=== PATIENT | female | born 1985 | race Caucasian/White ===

== ENCOUNTER 2021-04-13 10:00 | Emergency (ER) | payer OTHER, SELFPAY ==
--- NOTE | ~2021-04-13 | XR_ITS ---
EXAMINATION: XR chest 2V EXAM DATE: 04/13/2021 10:23 INDICATION: Right-sided chest tightness, cough and shortness of breath. Symptoms 2 days. TECHNIQUE: Frontal and lateral projections of the chest obtained and reviewed. Comparison is made to prior examination from 06/14/2017. FINDINGS: The lungs are clear. There are no pleural effusions. The cardiomediastinal silhouette is within normal limits. There is no pneumothorax suspected. The bones and soft tissues are unremarkab le. There are cholecystectomy clips. IMPRESSION: No acute cardiopulmonary findings. Reviewed, dictated and finalized at location A.
[2021-04-13 10:04] VITALS: BP 140/79; PULSE 102; RESP 20; TEMP 37.1; O2SAT 100
--- NOTE | 2021-04-13 10:11 | ECG_ITS ---
Measurements Intervals [place] Rate: 101 P: 20 SC: 151 QRS: 36 QRSD: 90 T: 28 QT: 315 QTc: 410 Interpretive Statements SINUS TACHYCARDIA BASELINE WANDER- II, III BORDERLINE ECG Electronically Signed On 04-13-2021 10:36:22 CDT by Truong Ortega D.O.
--- NOTE | 2021-04-13 10:14 | ED.GENADULT ---
HPI - General Adult General Chief complaint: Chest Pain Stated complaint: Chest Pain, SOB Time Seen by Provider: 04/13/21 10:07 Source: patient Mode of arrival: ambulatory Limitations: no limitations History of Present Illness HPI narrative: Patient is here for evaluation of chest tightness, body aches and cough that started several days ago. She states her thermometer is broken at home so she is not been able to take her temperature but she has felt feverish. She denies any wheezing, her cough is nonproductive. There is no one else in her family that is ill, she is not Covid or flu vaccinated. She denies being exposed to any situation where she would likely have contracted Covid. Onset (ago): day(s) Location: chest (right upper) Radiation: non-radiation Severity: mild Quality: aching Relieving factors: none Exacerbating factors: other (deep breath or cough) Associated symptoms: cough, fever/chills and malaise Treatments prior to arrival: NSAID Related Data Allergies Allergy/AdvReac Type Severity Reaction Status Date / Time acetaminophen Allergy Mild Nausea and Verified 04/13/21 10:14 Vomiting hydrocodone Allergy Mild Nausea and Verified 04/13/21 10:14 Vomiting Penicillins Allergy Mild Rash Verified 04/13/21 10:14 tramadol Allergy Mild Nausea and Verified 04/13/21 10:14 Vomiting latex Allergy Unknown RASH Verified 04/13/21 10:14 Review of Systems Review of Systems: All systems reviewed & are unremarkable except as noted in HPI and below [facility] Surgical History Surgical History (Updated 04/13/21 @ 11:05 by Lubna Gar PA-C) History of laparoscopic cholecystectomy Family History Family History Mother Hypertension Other Diabetes mellitus Family history of coronary artery disease Social History Social History (Updated 04/13/21 @ 11:05 by Lubna Gar PA-C) Smoking status: Current every day smoker Alcohol intake: current Substance use: never Living arrangements: with family Occupation/Education: unemployed Exam Const: General: healthy appearing, no acute distress and alert Orientation/consciousness: patient oriented x3 HENMT: Head: normal to inspection Eyes: Conjunctivae: conjunctivae normal Pupils: Equal, round and reactive pupils present Chest: Chest palpation & inspection: normal inspection of the chest Other: unable to reproduce pain. Resp: Effort & Inspection: normal respiratory effort Auscultation: clear to auscultation bilaterally Cardio: Rate: tachycardic Rhythm: regular rhythm GI: GI Palp: Yes Soft to palpation Back/Spine/Pelvis: Back: no CVA tenderness Skin: General skin exam: normal color Rashes: no rashes Neuro: General: patient oriented x3 and moves all extremities Extrem: General: normal to inspection Psych: Mental Status: mental status grossly normal Course Course Emergency Course: Unable to reproduce any chest pain, patient did not cough when I asked her to breathe deep. Hr rate is down. She states that her chest feels about the same after her breathing treatment but that her dyspnea is worse when she is walking around. We will treat for exertional dyspnea, she is flu negative, Covid pending. Vital Signs Vital signs: Vital Signs Temperature 37.1 C 04/13/21 10:04 Pulse Rate 102 H 04/13/21 10:04 Respiratory Rate 20 04/13/21 10:04 Blood Pressure 140/79 04/13/21 10:04 Pulse Oximetry 100 04/13/21 10:04 Temperature 37.1 C 04/13/21 10:04 Pulse Rate 102 H 04/13/21 10:04 Respiratory Rate 20 04/13/21 10:04 Blood Pressure 140/79 04/13/21 10:04 Pulse Oximetry 100 04/13/21 10:04 Medical Decision Making Vital Signs Vital Signs: Vital Signs Temperature 37.1 C 04/13/21 10:04 Pulse Rate 102 H 04/13/21 10:04 Respiratory Rate 20 04/13/21 10:04 Blood Pressure 140/79 04/13/21 10:04 Pulse Oximetry 100 04/13/21 10:04 Temperature
[2021-04-13 10:25] LABS: Basophils Absolute Auto 0.1 K/mm3 (0.0-0.1); Basophils Percent Auto 0.5 % (0.2-1.2); Eosinophils Absolute Auto 0.2 K/mm3 (0-0.3); Eosinophils Percent Auto 1.5 % (0-4.4); Hematocrit 41.8 % (37.0-47.0); Hemoglobin 14.3 g/dL (12.0-15.0); Immature Granulocyte Absolute 0.04 K/mm3 (0.00-0.031); Immature Granulocyte Percent A 0.3 % (0-0.5); Lymphocytes Absolute Auto 3.55 K/mm3 (0.9-3.2); Lymphocytes Percent Auto 27.4 % (18.3-44.2); Mean Corpuscular HGB Conc 34.2 g/dl (32-36); Mean Corpuscular Hemoglobin 31.2 pg (26-34); Mean Corpuscular Volume 91.3 fl (80-100); Mean Platelet Volume 8.8 fl (7.4-10.4); Monocytes Absolute Auto 0.7 K/mm3 (0.1-0.6); Monocytes Percent Auto 5.6 % (2.6-8.5); Neutrophils Absolute Auto 8.4 K/mm3 (1.3-6.7); Neutrophils Percent Auto 64.7 % (45.5-73.1); Platelet Count Result 371 k/mm3 (150-375); Red Blood Count 4.58 M/mm3 (4.2-5.4); Red Cell Distribution Width 12.8 % (11.5-14.5)
--- NOTE | 2021-04-13 10:37 | PC.NURSE ---
Aspirin not given per Lubna RADER.
[2021-04-13 10:58] LABS: INR 0.9; Prothrombin Time 12.3 Seconds (11.1-14.7)
[2021-04-13 10:59] LABS: Partial Thromboplastin Time 28.9 SECONDS (22.3-36.8)
[2021-04-13 11:01] LABS: Anion Gap 8 mmol/L (8-16); Blood Urea Nitrogen 11 mg/dL (7-17); Calcium 10.1 mg/dL (8.4-10.2); Carbon Dioxide 24 mmol/L (22-30); Chloride 106 mmol/L (98-107); Estimated CRCL calculation 121 ml/min; Estimated Glomerular Filt Rate > 60; Glucose 139 mg/dL (65-110); Sodium 138 mmol/L (137-145)
[2021-04-13 11:13] LABS: Troponin I < 0.012 ng/mL (0.000-0.034)
[2021-04-13] MEDS: ALBUTEROL SULFATE NEB 2.5 MG/3 ML INH INHALATION (11:27)
[2021-04-13 12:09] VITALS: BP 116/90; PULSE 82; RESP 22; O2SAT 100
[2021-04-14 18:29] LABS: SARS-CoV-2 RNA PCR Negative
== END 2021-04-13 12:10 | disposition home or self-care (01) ==
PROVIDERS: Physician Assistant; Emergency Provider Emergency Medicine
DX: J06.9 Acute upper respiratory infection, unspecified (principal); R07.89 Other chest pain; Z20.822 Contact with and (suspected) exposure to COVID-19; F17.200 Nicotine dependence, unspecified, uncomplicated
CPT/HCPCS: 36415; 71046; 80048; 84484; 85025; 85610; 85730; 87804; 93005; 94640; 99284; C9803; U0003; U0005

== ENCOUNTER 2022-02-10 16:54 | Emergency (ER) | payer OTHER, SELFPAY ==
--- NOTE | ~2022-02-10 | XR_ITS ---
EXAMINATION: XR foot LT min 3V DATE: 02/10/2022 17:11 INDICATION: Lateral left foot pain post injury TECHNIQUE: Dorsoplantar, two oblique and lateral views of the left foot were obtained. COMPARISON: None. FINDINGS: Alignment is normal. No fracture. Joint spaces are normal. Soft tissues are unremarkable. IMPRESSION: 1. Negative left foot radiographs. Reviewed, dictated and finalized at location A.
--- NOTE | 2022-02-10 16:55 | ED.LOWEXIN ---
HPI - Extremity Injury (Lower) General Chief Complaint: Extremity Injury, Lower Stated Complaint: leeft foot pain Time Seen by Provider: 02/10/22 16:55 Source: patient Mode of arrival: ambulatory Limitations: no limitations History of Present Illness HPI Narrative: Ms. Womack is a 36-year-old female patient presenting to the clinic today with complaints of left foot injury/pain. She reports she dropped a small cast iron skillet on her left lateral foot on Tuesday. She reports that it is very painful to move her fifth toe and also walk on the lateral foot. States she has been having to walk on the insides of her feet. Related Data Home Medications Medication Instructions Recorded Confirmed condoms - female (FC2 Female 02/10/22 02/10/22 Condom) Allergies Allergy/AdvReac Type Severity Reaction Status Date / Time acetaminophen Allergy Mild Nausea and Verified 02/10/22 16:56 Vomiting hydrocodone Allergy Mild Nausea and Verified 02/10/22 16:56 Vomiting Penicillins Allergy Mild Rash Verified 02/10/22 16:56 tramadol Allergy Mild Nausea and Verified 02/10/22 16:56 Vomiting latex Allergy Unknown RASH Verified 02/10/22 16:56 Review of Systems Review of Systems: Pertinent positives per HPI. Patient denies any fever, chills, rash, headache, visual changes, dizziness, cough, runny nose, sore throat, shortness of breath, chest pain, palpitations, nausea, vomiting, diarrhea, constipation, abdominal pain, or any urinary issues. [facility] Surgical History Surgical History History of laparoscopic cholecystectomy Family History Family History Mother Hypertension Other Diabetes mellitus Family history of coronary artery disease Social History Social History Smoking status: Current every day smoker Alcohol intake: current Substance use: never Comments At the time of my signature, I reviewed and agree with the nursing past medical, surgical, social, and family history. There is no relevant family history pertinent to the patient complaint. Exam Narrative: General: Well-developed, obese, in no apparent distress Head: Normocephalic, atraumatic. Cardio: Regular rate and rhythm, s1 and s2 normal, no murmur appreciated. Resp: Clear to auscultation bilaterally, no rhonchi, rales, wheezing or rubs. Musculoskeletal: No deformity,tender to palpation over the 5th metatarsal,limited rom toe the left 5th toe with flexion and extension otherwise grossly normal range of motion, muscle strength strong and equal, peripheral pulse strong, no edema, no cyanosis, normal gait and station Course Course Emergency Course: Portions of this record may have been created with voice recognition software. Level of Care: Express Care Visit Vital Signs Vital signs: Vital signs reviewed MDM - Extremity Injury (Lower) MDM Narrative Medical decision making narrative: At the time of visit patient is resting comfortably on the exam table. X-ray was negative for any fracture or malalignment of the left foot. Differential Diagnosis Differential diagnosis: Likely fracture of toe and other (Foot sprain, foot soft tissue injury) Imaging Data Radiologist's impression: Close Foot X-Ray (Signed) sAhvin Huston - 02/10/22 [facility] [address] [address] XRay Report Signed Patient: Ave Womack : 1985 MR#: [id number] Age/Sex: 36 / F Acct:[id number] Loc: EXPC[facility]? ? ADM Date: 02/10/22Attending Dr: Ordering Physician: Subhash Mandujano APRN Date of Service: 02/10/22 Procedure(s): XR foot LT min 3V Accession Number(s): [id number] cc: Subhash Mandujano APRN; UNKNOWN,DOCTOR~ EXAMINATION: XR foot
[2022-02-10 17:02] VITALS: BP 141/79; PULSE 104; RESP 16; TEMP 37.3; O2SAT 100
== END 2022-02-10 17:36 | disposition home or self-care (01) ==
PROVIDERS: Emergency Provider Nurse Practitioner Family
DX: S90.32XA Contusion of left foot, initial encounter (principal); W20.8XXA Other cause of strike by thrown, projected or falling object, initial encounter; F17.200 Nicotine dependence, unspecified, uncomplicated
CPT/HCPCS: 73630; 99213; G0463

== ENCOUNTER 2023-01-05 19:33 | Emergency (ER) | payer OTHER, SELFPAY ==
[2023-01-05 19:40] VITALS: BP 140/77; PULSE 100; RESP 16; TEMP 37; O2SAT 100
--- NOTE | 2023-01-05 19:57 | ED.GENADULT ---
HPI - General Adult General Chief complaint: Unspecified Stated complaint: Bodyaches Time Seen by Provider: 01/05/23 19:57 Source: patient, RN notes reviewed and old records reviewed Mode of arrival: ambulatory Limitations: no limitations History of Present Illness HPI narrative: 37 year old female who presents to [facility] care with complaints of body aches and especially bilateral hand pain for the past 7 days.Patient reports that she has noted some swelling to her hands and her hands and fingers are painful especially with movement. Patient denies any sore throat any fevers chills or any recent respiratory illness. Patient denies any known insect or tick bites. Patient reports that she has not taken any OTC pain medications on a routine basis, has not used ice or heat for her discomfort. Patient reports family history of arthritis. MD complaint: body aches especially bilateral hand pain Onset (ago): week(s) (1) Severity: moderate Treatments prior to arrival: none Related Data Home Medications Medication Instructions Recorded Confirmed norethindrone acetate 1 mg-ethinyl 1 tablet PO DAILY 02/10/22 01/05/23 estradiol 20 mcg tablet Allergies Allergy/AdvReac Type Severity Reaction Status Date / Time acetaminophen Allergy Mild Nausea and Verified 01/05/23 19:42 Vomiting hydrocodone Allergy Mild Nausea and Verified 01/05/23 19:42 Vomiting Penicillins Allergy Mild Rash Verified 01/05/23 19:42 tramadol Allergy Mild Nausea and Verified 01/05/23 19:42 Vomiting latex Allergy Unknown RASH Verified 01/05/23 19:42 Review of Systems Review of Systems: CONSTITUTIONAL: Denies fever, chills, or sweats. EYES: Denies visual changes, redness, or discharge. ENT: Denies rhinorrhea, congestion, sore throat, or otalgia. CARDIOVASCULAR: Denies chest pain, palpitations, or edema. RESPIRATORY: Denies cough or dyspnea. GASTROINTESTINAL: Denies abdominal pain, nausea, vomiting, or diarrhea. GENITOURINARY: Denies dysuria or hematuria. SKIN: Denies rash or itching. MUSCULOSKELETAL: Denies back pain,reports generalized joint pain and bodyaches, reports mainly bilateral hand pain,myalgia. NEUROLOGIC: Denies headache, numbness, or weakness. PSYCHIATRIC: Denies anxiety or depression. All systems reviewed & are unremarkable except as noted in HPI and below PMFSH Past Medical History Medical History (Updated 01/06/23 @ 16:03 by Maddie Wen NP) Bronchitis Lumbar strain Surgical History Surgical History (Updated 01/06/23 @ 15:48 by Maddie Wen NP) H/O arthroscopy of right knee History of arthroscopy of left shoulder History of dilatation and curettage History of laparoscopic cholecystectomy History of placement of ear tubes History of tonsillectomy and adenoidectomy Family History Family History (Updated 01/06/23 @ 15:45 by Maddie Wen NP) Mother Hypertension Other Arthritis Diabetes mellitus Family history of coronary artery disease Social History Social History Smoking status: Current every day smoker Alcohol intake: current Substance use: never Living arrangements: with family Occupation/Education: unemployed Comments At time of signature, agree with nursing past medical, surgical, social and family history. There is no relevant family history pertinent to the presenting complaint Exam Narrative: GENERAL: Well-appearing, well-nourished, and in no acute distress. HEAD: Normocephalic, atraumatic. EYES: PERRLA and EOMI. ENT: Nares clear, no rhinorrhea or epistaxis. Mucous membranes moist.TM's normal with good light reflex, throat pink tonsils not present NECK: Supple.no lymphadenopathy CHEST: Clear to auscultation. No respiratory distress.SAO2 100% on room air HEART: Regular rate and rhythm. No murmur heard. Normal peripheral pulses. ABDOMEN: Soft, nontender, nondistended, normal active bowel sounds. EXTREMITIES
== END 2023-01-05 20:10 | disposition home or self-care (01) ==
PROVIDERS: Emergency Provider Registered Nurse
DX: M25.542 Pain in joints of left hand (principal); M25.541 Pain in joints of right hand; R52 Pain, unspecified; F17.200 Nicotine dependence, unspecified, uncomplicated
CPT/HCPCS: 99213; G0463

== ENCOUNTER 2023-01-21 10:18 | Outpatient (CLI) | payer OTHER, SELFPAY ==
[2023-01-21 11:12] LABS: Hematocrit 42.8 % (37.0-47.0); Hemoglobin 13.9 g/dL (12.0-15.0); Mean Corpuscular HGB Conc 32.5 g/dl (32-36); Mean Corpuscular Hemoglobin 29.5 pg (26-34); Mean Corpuscular Volume 90.9 fl (80-100); Mean Platelet Volume 9.1 fl (7.4-10.4); Platelet Count Result 342 k/mm3 (150-375); Red Blood Count 4.71 M/mm3 (4.2-5.4); Red Cell Distribution Width 13.2 % (11.5-14.5)
[2023-01-21 11:23] LABS: Alanine Aminotransferase 31 U/L (6-35); Albumin Level 4.1 g/dL (3.5-5.1); Alkaline Phosphatase 82 U/L (38-126); Anion Gap 6 mmol/L (8-16); Aspartate Amino Transferase 29 U/L (14-36); Bilirubin,Total 0.3 mg/dL (0.2-1.3); Blood Urea Nitrogen 12 mg/dL (7-17); Calcium 8.9 mg/dL (8.4-10.2); Carbon Dioxide 20 mmol/L (22-30); Chloride 109 mmol/L (98-107); Cholesterol 209 mg/dL (0-200); Estimated Glomerular Filt Rate > 60; Glucose 86 mg/dL (65-110); HDL Direct 56 mg/dL; Potassium 4.1 mmol/L (3.4-5.0); Sodium 135 mmol/L (137-145); Triglycerides 113 mg/dL (<150)
[2023-01-21 11:31] LABS: LDL Cholesterol Direct 128 mg/dL
[2023-01-21 11:41] LABS: Erythrocyte Sedimentation Rate 18 mm/hr (0-20)
[2023-01-21 12:48] LABS: Rheumatoid Factor < 12.0 IU/ML (<12)
[2023-01-27 07:29] LABS: ANA Pattern Nuclear, Nucleolar; ANA Titer >=1:1280 (Negative); Anti Nuclear Antibody Pattern Nuclear, Speckled
[2023-01-27 22:04] LABS: Anti Cyclic Citrullinated Pept <16 Units (<20)
== END 2023-01-21 10:19 | disposition home or self-care (01) ==
PROVIDERS: PCP Nurse Practitioner Family; Visit Provider Nurse Practitioner Family
DX: M25.50 Pain in unspecified joint (principal); Z13.0 Encounter for screening for diseases of the blood and blood-forming organs and certain disorders involving the immune mechanism; M25.40 Effusion, unspecified joint; Z13.228 Encounter for screening for other metabolic disorders; Z13.220 Encounter for screening for lipoid disorders
CPT/HCPCS: 36415; 80053; 80061; 85025; 85652; 86038; 86039; 86140; 86200; 86430

== ENCOUNTER 2023-04-08 18:25 | Emergency (ER) | payer OTHER, SELFPAY ==
[2023-04-08 18:27] VITALS: BP 138/85; PULSE 81; RESP 18; TEMP 36.9; O2SAT 99
--- NOTE | 2023-04-08 18:47 | ED.EAR ---
HPI - Ear Problem General Chief complaint: Ear Stated complaint: right ear pain Time Seen by Provider: 04/08/23 18:47 Source: patient Mode of arrival: ambulatory Limitations: no limitations History of Present Illness HPI Narrative: 37-year-old female presents with complaint of right ear pain starting yesterday. Denies URI symptoms. Reports history of tubes, multiple ear infections as a child. Afebrile. All systems reviewed and negative except as noted above. Related Data Home Medications Medication Instructions Recorded Confirmed glucosamine-chondroitin 250 mg-200 2 tablet PO DAILY 01/19/23 04/08/23 mg tablet (Osteo Bi-Flex) norethindrone 1 mg-ethinyl 1 tablet PO DAILY 04/08/23 04/08/23 estradiol 20 mcg (21)-iron 75 mg (7) tablet (07/02 (28)) omeprazole magnesium 20 mg 20 mg PO DAILY 04/08/23 04/08/23 tablet,delayed release (Prilosec OTC) Allergies Allergy/AdvReac Type Severity Reaction Status Date / Time Penicillins Allergy Mild Rash Verified 04/08/23 18:26 tramadol Allergy Mild Nausea and Verified 04/08/23 18:26 Vomiting latex Allergy Unknown RASH Verified 04/08/23 18:26 Review of Systems Review of Systems: CONSTITUTIONAL: Denies fever, chills, or sweats. EYES: Denies visual changes, redness, or discharge. ENT: Denies rhinorrhea, congestion, sore throat . Reports right ear pain. CARDIOVASCULAR: Denies chest pain, palpitations, or edema. RESPIRATORY: Denies cough or dyspnea. GASTROINTESTINAL: Denies abdominal pain, nausea, vomiting, or diarrhea. GENITOURINARY: Denies dysuria or hematuria. SKIN: Denies rash or itching. MUSCULOSKELETAL: Denies back pain, joint pain, or myalgia. NEUROLOGIC: Denies headache, numbness, or weakness. PSYCHIATRIC: Denies anxiety or depression. All other systems reviewed are negative, except as documented in HPI. [facility] Past Medical History Medical History (Updated 04/08/23 @ 18:53 by Sofia Maloney NP) Bronchitis Lumbar strain Surgical History Surgical History (Updated 01/06/23 @ 15:48 by Maddie Wen NP) H/O arthroscopy of right knee History of arthroscopy of left shoulder History of dilatation and curettage History of laparoscopic cholecystectomy History of placement of ear tubes History of tonsillectomy and adenoidectomy Family History Family History (Updated 01/21/23 @ 09:53 by Whitney Fisher MA) Mother Hypertension Grandparent Diabetes mellitus Family history of coronary artery disease Other Arthritis Social History Social History (Updated 01/21/23 @ 09:55 by Whitney Fisher MA) Smoking status: Current every day smoker Tobacco type: cigarettes Alcohol intake: current Alcohol use details: rarely Substance use: never Lack of Transportation: No Lack of Food: Never True Current Housing: I Have Housing Concerned About Future Housing: No Difficulty Paying Gas/Electric Bills: No Difficulty Paying for Meds: No Currently Unemployed: No Education: Associate Degree Difficulty w/ Childcare or Family Care: No Living arrangements: with family Occupation/Education: unemployed Comments At time of signature, agree with nursing past medical, surgical, social and family history. There is no relevant family history pertinent to the presenting complaint. Exam Narrative: GENERAL: This is a well-nourished, well-developed patient, in no apparent distress. HEAD: normocephalic, atraumatic. EYES: PERRL. Sclera clear/white. Vision is grossly intact. EARS: External ears normal, auditory canals clear and without drainage, Fluid to right TM, retracted with mild erythema. No perforation Bilaterally. left TM normal. Hearing grossly intact. NOSE: External nose normal NECK: Neck supple, non-tender without lymphadenopathy, masses or thyromegaly. CARDIOVASCULAR: Regular rate and rhythm without murmurs, gallops, or rubs. RESPIRATORY: Clear to auscultation. Breath sounds equal bilaterally.
== END 2023-04-08 18:55 | disposition home or self-care (01) ==
PROVIDERS: Emergency Provider Nurse Practitioner Family; PCP Nurse Practitioner Family
DX: H65.01 Acute serous otitis media, right ear (principal); F17.210 Nicotine dependence, cigarettes, uncomplicated
CPT/HCPCS: 99213; G0463

== ENCOUNTER 2023-07-12 10:56 | Outpatient (CLI) | payer OTHER, SELFPAY ==
--- NOTE | ~2023-07-12 | XR_ITS ---
XR hand BI arthritis min 3V DATE: 07/12/2023 11:38 INDICATION: Systemic involvement of connective tissue TECHNIQUE: 4 views of each hand COMPARISON: None FINDINGS: No fracture, dislocation, periosteal reaction or bone destruction, erosive change or chondr ocalcinosis of either hand is noted. Joint spaces appear relatively well preserved. IMPRESSION: No significant abnormality Reviewed, dictated and finalized at location L. ERY [employer] IMPRESSION: No significant abnormality
--- NOTE | ~2023-07-12 | XR_ITS ---
XR chest 2V DATE: 07/12/2023 11:38 INDICATION: Nicotine dependence TECHNIQUE: PA and lateral views COMPARISON: 04/13/2021 2 view chest FINDINGS: Normal heart size. No hilar or mediastinal enlargement. Calcified pulmonary granuloma, middle lobe. The lungs are clear of infiltrate or consolidation, pleur al effusion or pulmonary vascular congestion or pneumothorax. Surgical clips, right upper quadrant, consistent with cholecystectomy. Mild thoracic dextroscoliosis IMPRESSION: No active cardiopulmonary disease Status post cholecystectomy Reviewed, dictated and finalized at location L. [facility] [employer]
[2023-07-12 11:30] LABS: Hematocrit 43.6 % (37.0-47.0); Hemoglobin 14.5 g/dL (12.0-15.0); Mean Corpuscular HGB Conc 33.3 g/dl (32-36); Mean Corpuscular Volume 90.1 fl (80-100); Mean Platelet Volume 8.7 fl (7.4-10.4); Platelet Count Result 339 k/mm3 (150-375); Red Blood Count 4.84 M/mm3 (4.2-5.4); Red Cell Distribution Width 12.9 % (11.5-14.5); White Blood Count 10.9 K/mm3 (4.5-10.0)
[2023-07-12 11:41] LABS: Creatine Kinase 79 U/L (30-135); Uric Acid 3.3 mg/dL (2.5-7.5)
[2023-07-12 11:42] LABS: Total Protein Urine Random 28 mg/dL
[2023-07-12 11:50] LABS: Complement C3 108 mg/dL (88-165)
[2023-07-12 12:15] LABS: Vitamin D 25 Hydroxy 37.3 ng/mL
[2023-07-12 12:16] LABS: Creatinine Urine 289.7 mg/dL
[2023-07-12 12:22] LABS: HIV 1/2 Ab P24 Ag Result Negative (Negative)
[2023-07-12 12:29] LABS: Hepatitis B Surface Antigen Negative (Negative)
[2023-07-12 12:49] LABS: Hepatitis B Surface Anti Res Positive; Hepatitis C Virus Antibody Negative (Negative)
[2023-07-12 13:49] LABS: Erythrocyte Sedimentation Rate 8 mm/hr (0-20)
[2023-07-14 21:48] LABS: Aldolase 4.4 U/L (<=8.1)
[2023-07-15 04:18] LABS: Lupus dRVVT Screen 35 sec (<=45); PTT-LA Screen 34 sec (<=40)
[2023-07-15 21:03] LABS: SM Antibody <1.0; SM/RNP Antibody <1.0; SS-A <1.0; SS-B <1.0
== END 2023-07-12 10:57 | disposition home or self-care (01) ==
PROVIDERS: PCP Nurse Practitioner Family; Visit Provider Internal Medicine
DX: F17.200 Nicotine dependence, unspecified, uncomplicated (principal); M35.9 Systemic involvement of connective tissue, unspecified; M06.041 Rheumatoid arthritis without rheumatoid factor, right hand; M06.042 Rheumatoid arthritis without rheumatoid factor, left hand; M19.90 Unspecified osteoarthritis, unspecified site; Z90.49 Acquired absence of other specified parts of digestive tract
CPT/HCPCS: 36415; 71046; 73130; 82085; 82306; 82550; 82570; 84156; 84550; 85027; 85613; 85652; 85730; 86160; 86225; 86235; 86703; 86706; 86803; 87340; G0432

== ENCOUNTER 2024-04-17 14:35 | Emergency (ER) | payer SELFPAY ==
[2024-04-17 14:41] VITALS: BP 119/73; PULSE 92; RESP 16; TEMP 36.9; O2SAT 100
--- NOTE | 2024-04-17 14:47 | ED_ITS ---
HPI - Skin/Abscess/Foreign Bdy General Chief complaint: Skin/Abscess/Foreign Body Stated complaint: Right Underarm Bump Time Seen by Provider: 04/17/24 14:59 Source: patient, RN notes reviewed and old records reviewed Mode of arrival: ambulatory Limitations: no limitations History of Present Illness HPI narrative: Patient presents with complaints of painful red lump under the right axilla. She reports that this has been a problem fairly often in the past, same spot. She typically cleanse this area with Hibiclens and it resolves on its own. She reports this particular time the area has gotten worse. She reports she noticed it 3-4 days ago. It has increased in size. She has noted some purulent drainage. She denies any fever, chills, sweats. Denies any injury or trauma. No other concerns or complaints today. Has been taking Tylenol and ibuprofen with minimal relief Related Data Home Medications Medication Instructions Recorded Confirmed norethindrone 1 mg-ethinyl 1 tablet PO DAILY 04/08/23 04/17/24 estradiol 20 mcg (21)-iron 75 mg (7) tablet (07/02 (28)) Allergies Allergy/AdvReac Type Severity Reaction Status Date / Time Penicillins Allergy Mild Rash Verified 11/01/23 09:28 tramadol Allergy Mild Nausea and Verified 11/01/23 09:28 Vomiting latex Allergy Unknown RASH Verified 11/01/23 09:28 Review of Systems Review of Systems: All systems reviewed & are unremarkable except as noted in HPI and below Constitutional: Constitutional: Reports no additional constitutional complaints ENT: Reports system reviewed and no additional complaints, except as documented Cardiovascular: Cardiovascular: Reports no additional cardiovascular complaints Respiratory: Respiratory: Reports no additional respiratory complaints Gastrointestinal: Gastrointestinal: Reports no additional gastrointestinal complaints Integumentary/Breasts: Skin/Breast: Reports system reviewed and no additional complaints, except as docu and Reports as per HPI [facility] Past Medical History Medical History (Updated 04/17/24 @ 15:07 by Yessenia Strickland APRN) Bronchitis Counseling on health promotion and disease prevention Current smoker Encounter for medication management Encounter for screening for other viral diseases Lumbar strain Undifferentiated connective tissue disease Surgical History Surgical History H/O arthroscopy of right knee History of arthroscopy of left shoulder History of dilatation and curettage History of laparoscopic cholecystectomy History of placement of ear tubes History of tonsillectomy and adenoidectomy Family History Family History Mother Hypertension Grandparent Diabetes mellitus Family history of coronary artery disease Other Arthritis Social History Social History Smoking status: Current every day smoker Tobacco type: cigarettes Alcohol intake: current Alcohol use details: rarely Substance use: never Lack of Transportation: No Lack of Food: Never True Current Housing: I Have Housing Concerned About Future Housing: No Difficulty Paying Gas/Electric Bills: No Difficulty Paying for Meds: No Currently Unemployed: No Education: Associate Degree Difficulty w/ Childcare or Family Care: No Living arrangements: with family Occupation/Education: unemployed Comments At the time of my signature, I reviewed and agree with the nursing past medical, surgical, social, and family history. There is no relevant family history pertinent to the patient complaint. Exam Const: General: cooperative, no acute distress, alert and awake Orie ntation/consciousness: oriented to person, oriented to place and oriented to time HENMT: Head: normal to inspection Resp: Effort & Inspection: normal respiratory effort and able to speak in complete sentences Auscultation: clear to auscultation bilaterally, no crackles, no rales, no rhonchi and no wheezes Cardio: Palpation: normal PMI Rate: regular rate Rhythm: regular rhythm Heart sounds: S1 normal heart sound present and S2 normal heart sound present Skin: Other: Abscess to right axilla, fluctuant with no active drainage at this time, features are consistent with hydradenitis. There is some surrounding redness without any induration Neuro: General: oriented to person, oriented to place and oriented to time Cranial nerves: Yes CN's II-XII intact bilaterally Psych: Appearance: grossly normal Thought process: Normal thought process present Insight: Good insight present (Psych) Judgement: Good judgement present (Psych) Course Course Level of Care: Express Care Visit Vital Signs Vital signs: Reviewed MDM - Skin/Abscess/Foreign Bdy MDM Narrative Medical decision making narrative: Patient with symptoms consistent with hydradenitis to right axilla. I&D not appropriate for this case. Start on p.o. antibiotic therapy. Patient strongly advised to follow with primary care provider. Emergency department for new or worse symptoms. Discharge instructions reviewed with patient, as well as provided in writing per nursing staff. The instructions also include specific and strict return/GO TO THE ER as well as f/u information. All questions have been answered, and the patient deny any further questions with discharge and discharge plan. Some parts of this dictation were generated by voice recognition software and may contain typographical and/or grammatical inaccuracies. Differential Diagnosis Differential diagnosis: Likely abscess of skin or subcutaneous tissue and cellulitis Medical Records Attestation: I reviewed the patient's medical records. Discharge Plan Discharge Clinical Impression: Axillary hidradenitis suppurativa Patient Disposition: Home, Self-Care Condition: Stable Instructions: Antibiotic Form, Abscess (ED) Additional Instructions: Take medications as prescribed. Follow-up with primary care provider. Emergency department for new or worse symptoms Patient Language: Telugu Prescriptions: New clindamycin HCl 300 mg capsule 300 mg PO TID 7 Days Qty: 21 0RF No Action norethindrone-e.estradiol-iron [Junel FE 07/02 (28)] 1 mg-20 mcg (21)/75 mg (7) tablet 1 tablet PO DAILY hydroxychloroquine [Plaquenil] 200 mg tablet 400 mg PO DAILY Qty: 60 4RF Follow-up/Referrals: Sarika Oneal APRN [Primary Care Provider] - 2 Weeks Time of Disposition: 15:08
== END 2024-04-17 15:20 | disposition home or self-care (01) ==
PROVIDERS: Emergency Provider Nurse Practitioner Family; PCP Nurse Practitioner Family
DX: L73.2 Hidradenitis suppurativa (principal); F17.210 Nicotine dependence, cigarettes, uncomplicated
CPT/HCPCS: 99213; G0463

== ENCOUNTER 2024-06-11 10:01 | Outpatient (CLI) | payer OTHER, SELFPAY ==
[2024-06-11 10:32] LABS: Basophils Percent Auto 0.5 % (0.2-1.2); Eosinophils Absolute Auto 0.2 K/mm3 (0-0.3); Eosinophils Percent Auto 2.5 % (0-4.4); Hematocrit 45.2 % (37.0-47.0); Hemoglobin 15.2 g/dL (12.0-15.0); Immature Granulocyte Absolute 0.02 K/mm3 (0.00-0.031); Immature Granulocyte Percent A 0.3 % (0-0.5); Lymphocytes Absolute Auto 2.63 K/mm3 (0.9-3.2); Lymphocytes Percent Auto 40.3 % (18.3-44.2); Mean Corpuscular HGB Conc 33.6 g/dl (32-36); Mean Corpuscular Hemoglobin 30.2 pg (26-34); Mean Corpuscular Volume 89.7 fl (80-100); Monocytes Absolute Auto 0.4 K/mm3 (0.1-0.6); Monocytes Percent Auto 5.7 % (2.6-8.5); Neutrophils Absolute Auto 3.3 K/mm3 (1.3-6.7); Neutrophils Percent Auto 50.7 % (45.5-73.1); Platelet Count Result 270 k/mm3 (150-375); Red Blood Count 5.04 M/mm3 (4.2-5.4); Red Cell Distribution Width 13.1 % (11.5-14.5); White Blood Count 6.5 K/mm3 (4.5-10.0)
[2024-06-11 10:39] LABS: Add Urine Microscopic? YES; Appearance Urine Clear (Clear); Bacteria Urine Rare /hpf; Bilirubin Urine Negative (Negative); Blood Urine 1+ (Negative); Color Urine Yellow (Yellow); Glucose Urine UA Negative (Negative); Ketones Urine Trace mg/dL (Negative); Leukocyte Esterase Ur 1+ LEU/UL (Negative); Nitrate Urine Negative (Negative); Non Pathogenic Casts 0-2; Protein Urine 1+ mg/dL (Negative); Specific Grav Ur 1.021 (1.001-1.035); Squamous Epithelial Cell Urine Few /hpf (Few)
[2024-06-11 10:51] LABS: Alanine Aminotransferase 22 U/L (6-35); Albumin Level 4.2 g/dL (3.5-5.1); Alkaline Phosphatase 77 U/L (38-126); Anion Gap 2 mmol/L (4-12); Aspartate Amino Transferase 24 U/L (14-36); Bilirubin,Total 0.4 mg/dL (0.2-1.3); Blood Urea Nitrogen 9 mg/dL (7-17); CRP < 0.5 mg/dL (<1.0); Carbon Dioxide 24 mmol/L (22-30); Chloride 110 mmol/L (98-107); Estimated Glomerular Filt Rate > 60; Glucose 86 mg/dL (65-110); Potassium 4.3 mmol/L (3.4-5.0); Sodium 136 mmol/L (137-145)
[2024-06-11 11:15] LABS: Erythrocyte Sedimentation Rate 10 mm/hr (0-20)
== END 2024-06-11 10:02 | disposition home or self-care (01) ==
LOC: ANHLAB 10:05
PROVIDERS: PCP Nurse Practitioner Family; Visit Provider Internal Medicine
DX: M32.9 Systemic lupus erythematosus, unspecified (principal)
CPT/HCPCS: 36415; 80053; 81001; 84100; 85025; 85652; 86140

== ENCOUNTER 2024-06-20 08:57 | Outpatient (CLI) | payer OTHER, SELFPAY | END 2024-06-20 08:58 | disposition home or self-care (01) | LOC: ANHLAB 08:58 | PROVIDERS: PCP Nurse Practitioner Family; Visit Provider Obstetrics & Gynecology | DX: R10.2 Pelvic and perineal pain (principal) | CPT/HCPCS: 36415; 86850; 86900; 86901 ==

== ENCOUNTER 2024-08-15 10:32 | Outpatient (CLI) | payer OTHER, SELFPAY ==
[2024-08-15 11:40] LABS: Basophils Absolute Auto 0.1 K/mm3 (0.0-0.1); Basophils Percent Auto 0.5 % (0.2-1.2); Eosinophils Absolute Auto 0.5 K/mm3 (0-0.3); Eosinophils Percent Auto 3.3 % (0-4.4); Hemoglobin 13.7 g/dL (12.0-15.0); Immature Granulocyte Absolute 0.06 K/mm3 (0.00-0.031); Immature Granulocyte Percent A 0.4 % (0-0.5); Lymphocytes Absolute Auto 2.85 K/mm3 (0.9-3.2); Lymphocytes Percent Auto 19.3 % (18.3-44.2); Mean Corpuscular HGB Conc 33.4 g/dl (32-36); Mean Corpuscular Hemoglobin 30.9 pg (26-34); Mean Corpuscular Volume 92.6 fl (80-100); Monocytes Absolute Auto 0.7 K/mm3 (0.1-0.6); Neutrophils Absolute Auto 10.5 K/mm3 (1.3-6.7); Neutrophils Percent Auto 71.5 % (45.5-73.1); Platelet Count Result 323 k/mm3 (150-375); Red Blood Count 4.43 M/mm3 (4.2-5.4); Red Cell Distribution Width 13.6 % (11.5-14.5); White Blood Count 14.8 K/mm3 (4.5-10.0)
[2024-08-15 11:44] LABS: Add Urine Microscopic? YES; Appearance Urine Clear (Clear); Bacteria Urine None Seen /hpf; Bilirubin Urine Negative (Negative); Blood Urine 2+ (Negative); Color Urine Yellow (Yellow); Glucose Urine UA Negative (Negative); Ketones Urine Negative (Negative); Leukocyte Esterase Ur Negative LEU/UL (Negative); Nitrate Urine Negative (Negative); Non Pathogenic Casts 0-2; Protein Urine Trace mg/dL (Negative); Specific Grav Ur 1.018 (1.001-1.035); Squamous Epithelial Cell Urine Occasional /hpf (Few); Urobilinogen Urine 0.2 mg/dL (<2.0); WBC Urine 0-5 /hpf (0-3)
[2024-08-15 12:06] LABS: Erythrocyte Sedimentation Rate 13 mm/hr (0-20)
[2024-08-15 12:20] LABS: Alanine Aminotransferase 30 U/L (6-35); Alkaline Phosphatase 82 U/L (38-126); Anion Gap 8 mmol/L (4-12); Aspartate Amino Transferase 24 U/L (14-36); Bilirubin,Total 0.2 mg/dL (0.2-1.3); Blood Urea Nitrogen 12 mg/dL (7-17); CRP < 0.5 mg/dL (<1.0); Calcium 8.7 mg/dL (8.4-10.2); Carbon Dioxide 22 mmol/L (22-30); Chloride 106 mmol/L (98-107); Estimated Glomerular Filt Rate > 60; Glucose 98 mg/dL (65-110); Phosphorus 2.9 mg/dL (2.5-4.5); Potassium 3.7 mmol/L (3.4-5.0); Sodium 136 mmol/L (137-145)
== END 2024-08-15 10:33 | disposition home or self-care (01) ==
LOC: ANHLAB 10:36
PROVIDERS: PCP Nurse Practitioner Family; Visit Provider Internal Medicine
DX: M06.00 Rheumatoid arthritis without rheumatoid factor, unspecified site (principal)
CPT/HCPCS: 36415; 80053; 81001; 84100; 85025; 85652; 86140

== ENCOUNTER 2024-10-23 08:41 | Outpatient (CLI) | payer OTHER, SELFPAY ==
[2024-10-23 09:22] LABS: Basophils Absolute Auto 0.1 K/mm3 (0.0-0.1); Basophils Percent Auto 0.6 % (0.2-1.2); Eosinophils Absolute Auto 0.2 K/mm3 (0-0.3); Eosinophils Percent Auto 2.2 % (0-4.4); Hemoglobin 14.7 g/dL (12.0-15.0); Immature Granulocyte Absolute 0.04 K/mm3 (0.00-0.031); Immature Granulocyte Percent A 0.4 % (0-0.5); Lymphocytes Absolute Auto 2.49 K/mm3 (0.9-3.2); Lymphocytes Percent Auto 24.3 % (18.3-44.2); Mean Corpuscular HGB Conc 32.7 g/dl (32-36); Mean Corpuscular Hemoglobin 30.6 pg (26-34); Mean Corpuscular Volume 93.6 fl (80-100); Mean Platelet Volume 8.7 fl (7.4-10.4); Monocytes Absolute Auto 0.7 K/mm3 (0.1-0.6); Monocytes Percent Auto 6.5 % (2.6-8.5); Neutrophils Absolute Auto 6.8 K/mm3 (1.3-6.7); Platelet Count Result 319 k/mm3 (150-375); Red Blood Count 4.81 M/mm3 (4.2-5.4); Red Cell Distribution Width 13.1 % (11.5-14.5); White Blood Count 10.2 K/mm3 (4.5-10.0)
[2024-10-23 09:30] LABS: Add Urine Microscopic? YES; Appearance Urine Clear (Clear); Bacteria Urine None Seen /hpf; Bilirubin Urine Negative (Negative); Blood Urine 2+ (Negative); Color Urine Yellow (Yellow); Glucose Urine UA Negative (Negative); Ketones Urine Negative (Negative); Leukocyte Esterase Ur Negative LEU/UL (Negative); Nitrate Urine Negative (Negative); Non Pathogenic Casts 0-2; Protein Urine Negative (Negative); Specific Grav Ur 1.007 (1.001-1.035); Squamous Epithelial Cell Urine None Seen /hpf (Few); Urobilinogen Urine 0.2 mg/dL (<2.0); WBC Urine 0-5 /hpf (0-3); pH Urine 6.5 (5.0-9.0)
[2024-10-23 09:48] LABS: Erythrocyte Sedimentation Rate 15 mm/hr (0-20)
[2024-10-23 09:56] LABS: Alanine Aminotransferase 37 U/L (6-35); Albumin Level 4.6 g/dL (3.5-5.1); Alkaline Phosphatase 78 U/L (38-126); Anion Gap 8 mmol/L (4-12); Aspartate Amino Transferase 33 U/L (14-36); Bilirubin Indirect 0.1 mg/dL (0-1.1); Bilirubin,Total 0.3 mg/dL (0.2-1.3); Blood Urea Nitrogen 10 mg/dL (7-17); CRP < 0.5 mg/dL (<1.0); Calcium 9.1 mg/dL (8.4-10.2); Carbon Dioxide 24 mmol/L (22-30); Chloride 105 mmol/L (98-107); Estimated Glomerular Filt Rate > 60; Glucose 89 mg/dL (65-110); Potassium 4.6 mmol/L (3.4-5.0); Sodium 137 mmol/L (137-145)
== END 2024-10-23 08:42 | disposition home or self-care (01) ==
LOC: ANHLAB 08:44
PROVIDERS: PCP Nurse Practitioner Family; Visit Provider Internal Medicine
DX: M06.00 Rheumatoid arthritis without rheumatoid factor, unspecified site (principal); Z79.899 Other long term (current) drug therapy
CPT/HCPCS: 36415; 80053; 81001; 82248; 85025; 85652; 86140

== ENCOUNTER 2024-12-03 07:00 | Outpatient (CLI) | payer OTHER, SELFPAY ==
[2024-12-03 07:28] LABS: Basophils Absolute Auto 0.1 K/mm3 (0.0-0.1); Basophils Percent Auto 1.2 % (0.2-1.2); Eosinophils Absolute Auto 0.3 K/mm3 (0-0.3); Eosinophils Percent Auto 2.6 % (0-4.4); Hematocrit 44.7 % (37.0-47.0); Hemoglobin 14.8 g/dL (12.0-15.0); Immature Granulocyte Absolute 0.02 K/mm3 (0.00-0.031); Immature Granulocyte Percent A 0.2 % (0-0.5); Lymphocytes Absolute Auto 2.17 K/mm3 (0.9-3.2); Lymphocytes Percent Auto 22.8 % (18.3-44.2); Mean Corpuscular HGB Conc 33.1 g/dl (32-36); Mean Corpuscular Hemoglobin 30.3 pg (26-34); Mean Corpuscular Volume 91.6 fl (80-100); Mean Platelet Volume 8.7 fl (7.4-10.4); Monocytes Absolute Auto 0.8 K/mm3 (0.1-0.6); Monocytes Percent Auto 8.3 % (2.6-8.5); Neutrophils Absolute Auto 6.2 K/mm3 (1.3-6.7); Neutrophils Percent Auto 64.9 % (45.5-73.1); Platelet Count Result 308 k/mm3 (150-375); Red Blood Count 4.88 M/mm3 (4.2-5.4); Red Cell Distribution Width 12.8 % (11.5-14.5); White Blood Count 9.5 K/mm3 (4.5-10.0)
[2024-12-03 07:40] LABS: Alanine Aminotransferase 53 U/L (6-35); Albumin Level 4.2 g/dL (3.5-5.1); Alkaline Phosphatase 78 U/L (38-126); Anion Gap 8 mmol/L (4-12); Aspartate Amino Transferase 39 U/L (14-36); Bilirubin Indirect 0.2 mg/dL (0-1.1); Bilirubin,Total 0.2 mg/dL (0.2-1.3); Blood Urea Nitrogen 12 mg/dL (7-17); CRP < 0.5 mg/dL (<1.0); Calcium 9.1 mg/dL (8.4-10.2); Carbon Dioxide 24 mmol/L (22-30); Chloride 105 mmol/L (98-107); Estimated Glomerular Filt Rate > 60; Glucose 104 mg/dL (65-110); Sodium 137 mmol/L (137-145); Total Protein 7.3 g/dL (6.3-8.2)
[2024-12-03 08:03] LABS: Add Urine Microscopic? YES; Appearance Urine Clear (Clear); Bacteria Urine None Seen /hpf; Bilirubin Urine Negative (Negative); Blood Urine 1+ (Negative); Color Urine Yellow (Yellow); Glucose Urine UA Negative (Negative); Ketones Urine Negative (Negative); Leukocyte Esterase Ur Negative LEU/UL (Negative); Nitrate Urine Negative (Negative); Non Pathogenic Casts 0-2; Protein Urine 1+ mg/dL (Negative); RBC Urine 21-50 /hpf (0-2); Specific Grav Ur 1.022 (1.001-1.035); Squamous Epithelial Cell Urine None Seen /hpf (Few); WBC Urine 0-5 /hpf (0-3)
[2024-12-03 08:15] LABS: Erythrocyte Sedimentation Rate 15 mm/hr (0-20)
== END 2024-12-03 07:01 | disposition home or self-care (01) ==
LOC: ANHLAB 07:02
PROVIDERS: PCP Nurse Practitioner Family; Visit Provider Internal Medicine
DX: M06.00 Rheumatoid arthritis without rheumatoid factor, unspecified site (principal); Z79.899 Other long term (current) drug therapy
CPT/HCPCS: 36415; 80053; 81001; 82248; 85025; 85652; 86140

== ENCOUNTER 2025-01-10 07:22 | Outpatient (CLI) | payer OTHER, SELFPAY ==
[2025-01-10 08:23] LABS: Add Urine Microscopic? YES; Appearance Urine Clear (Clear); Glucose Urine UA Negative (Negative); Leukocyte Esterase Ur Negative LEU/UL (Negative); Nitrate Urine Negative (Negative); Non Pathogenic Casts 0-2; Specific Grav Ur 1.019 (1.001-1.035)
[2025-01-10 08:33] LABS: Hematocrit 42.5 % (37.0-47.0); Hemoglobin 14.3 g/dL (12.0-15.0); Immature Granulocyte Percent A 0.5 % (0-0.5); Lymphocytes Absolute Auto 2.69 K/mm3 (0.9-3.2); Mean Corpuscular HGB Conc 33.6 g/dl (32-36); Mean Corpuscular Hemoglobin 30.5 pg (26-34); Mean Corpuscular Volume 90.6 fl (80-100); Nucleated Red Blood Cells Absolute Auto 0.000 K/mm3 (0.0-0.012); Nucleated Red Blood Cells Perc 0.0 % (0.0-0.2); Platelet Count Result 345 k/mm3 (150-375); Red Blood Count 4.69 M/mm3 (4.2-5.4); White Blood Count 11.9 K/mm3 (4.5-10.0)
[2025-01-10 08:58] LABS: Alanine Aminotransferase 36 U/L (6-35); Albumin Level 4.2 g/dL (3.5-5.1); Alkaline Phosphatase 78 U/L (38-126); Anion Gap 7 mmol/L (4-12); Aspartate Amino Transferase 37 U/L (14-36); Bilirubin,Total 0.4 mg/dL (0.2-1.3); Blood Urea Nitrogen 12 mg/dL (7-17); CRP < 0.5 mg/dL (<1.0); Calcium 9.2 mg/dL (8.4-10.2); Carbon Dioxide 22 mmol/L (22-30); Chloride 107 mmol/L (98-107); Estimated Glomerular Filt Rate > 60; Glucose 84 mg/dL (65-110); Potassium 4.1 mmol/L (3.4-5.0); Sodium 136 mmol/L (137-145); Total Protein 7.2 g/dL (6.3-8.2)
[2025-01-10 09:16] LABS: Hepatitis B Surface Antigen Negative (Negative)
[2025-01-10 09:22] LABS: HAV RESULT Negative (Negative); Hepatitis B Core IgM Result Negative (Negative)
[2025-01-10 09:34] LABS: Hepatitis B Surface Anti Res Positive
== END 2025-01-10 07:23 | disposition home or self-care (01) ==
LOC: ANHLAB 07:23
PROVIDERS: PCP Nurse Practitioner Family; Visit Provider Internal Medicine
DX: M06.09 Rheumatoid arthritis without rheumatoid factor, multiple sites (principal); Z79.899 Other long term (current) drug therapy
CPT/HCPCS: 36415; 80053; 80074; 81001; 84100; 85025; 85652; 86140; 86480; 86706

== ENCOUNTER 2025-01-30 17:09 | Emergency (ER) | payer OTHER, SELFPAY ==
[2025-01-30 17:17] VITALS: BP 140/82; PULSE 112; RESP 20; TEMP 36.7; O2SAT 100
--- NOTE | 2025-01-30 18:02 | ED.URI ---
HPI - URI/Sore Throat General Chief Complaint: Upper Respiratory Infection Stated Complaint: URI Symptoms Time Seen by Provider: 01/30/25 18:02 Source: patient Mode of arrival: ambulatory Limitations: no limitations History of Present Illness HPI Narrative: 39-year-old female presents with complaint of cough, nasal congestion, chest congestion for 3-4 days. Afebrile. taking [id number] Mucinex to treat symptoms. No chest pain or shortness of breath. Patient states that she is immunocompromised and concerned that she may have pneumonia. Patient smokes half a pack a cigarettes a day. All systems reviewed and negative except as noted above. Related Data Home Medications ?Medication ?Instructions ?Recorded ?Confirmed ?Last Taken ?Type norethindrone 1 mg-ethinyl 1 tablet PO DAILY 04/08/23 06/29/24 06/28/24 History estradiol 20 mcg (21)-iron 75 mg (7) tablet (07/02 (28)) folic acid 1 mg tablet 1 mg PO DAILY 06/19/24 06/29/24 06/26/24 History methotrexate sodium 2.5 mg tablet 12.5 mg PO WEEKLY 06/19/24 06/29/24 06/26/24 History Allergies Allergy/AdvReac Type Severity Reaction Status Date / Time Penicillins Allergy Mild Rash Verified 01/30/25 17:28 tramadol Allergy Mild Nausea and Verified 01/30/25 17:28 Vomiting latex Allergy Unknown RASH Verified 01/30/25 17:28 [facility] Past Medical History Medical History Counseling on health promotion and disease prevention Current smoker Encounter for screening for other viral diseases Encounter for medication management Undifferentiated connective tissue disease Lumbar strain Bronchitis Surgical History Surgical History History of dilatation and curettage History of arthroscopy of left shoulder H/O arthroscopy of right knee History of placement of ear tubes History of tonsillectomy and adenoidectomy History of laparoscopic cholecystectomy Family History Family History Mother Hypertension Grandparent Diabetes mellitus Family history of coronary artery disease Other Arthritis Social History Social History Smoking packs per day: 0.5 Smoking cigarettes per day: 10.0 Years smoked: 20 Smoking pack-years: 10.00 Smoking status: Current every day smoker Tobacco type: cigarettes Second hand tobacco smoke exposure: Yes Alcohol intake: current Alcohol use details: rarely Substance use: never Substance use type: does not use Lack of Transportation: No Lack of Food: Never True Current Housing: I Have Housing Concerned About Future Housing: No Difficulty Paying Gas/Electric Bills: No Difficulty Paying for Meds: No Currently Unemployed: No Education: Associate Degree Difficulty w/ Childcare or Family Care: No Living arrangements: with family Additional living arrangements comments: with fiance and son Occupation/Education: unemployed Spiritual care concerns: No Comments At time of signature, agree with nursing past medical, surgical, social and family history. There is no relevant family history pertinent to the presenting complaint. Exam Narrative: GENERAL: This is a well-nourished, well-developed patient, in no apparent distress. HEAD: normocephalic, atraumatic. EYES: PERRL. Sclera clear/white. Vision is grossly intact. EARS: External ears normal, auditory canals clear and without drainage, TMs normal without perforation. Hearing grossly intact. NOSE: External nose normal with Congestion, purulent nasal drainage THROAT: Mucous membranes moist, mild erythema postnasal drainage NECK: Neck supple, non-tender without lymphadenopathy, masses or thyromegaly. CARDIOVASCULAR: Regular rate and rhythm without murmurs, gallops, or rubs. RESPIRATORY: mildly decreased to left lower lung field otherwise clear. Breath sounds equal bilaterally. No wheezes, rales, or rhonchi. SKIN: warm, Dry, intact with no suspicious lesions or rash, good texture and turgor. NEURO: awake, alert, and oriented to person, place and time. There were no obvious focal neurologic abnormalities. EXTREMITIES: No joint tenderness, effusion, or edema noted. Course Course Level of Care: Express Care Visit Vital Signs Vital signs: Vital Signs Temperature 36.7 C 01/30/25 17:17 Pulse Rate 112 H 01/30/25 17:17 Respiratory Rate 20 01/30/25 17:17 Blood Pressure 140/82 01/30/25 17:17 Pulse Oximetry 100 01/30/25 17:17 Oxygen Delivery Room Air 01/30/25 17:17 Temperature 36.7 C 01/30/25 17:17 Pulse Rate 112 H 01/30/25 17:17 Respiratory Rate 20 01/30/25 17:17 Blood Pressure 140/82 01/30/25 17:17 Pulse Oximetry 100 01/30/25 17:17 Oxygen Delivery Room Air 01/30/25 17:17 Reviewed MDM - URI/Sore Throat MDM Narrative Medical decision making narrative: patient is ill-appearing but in no acute distress. Will prescribe antibiotic today due to exam findings. Recommend follow-up with primary care physician if not improving. Differential Diagnosis Differential diagnosis: Likely upper respiratory infection, sinusitis, viral infection, influenza, pharyngitis and other ( Pneumonia) Lab Data Labs: Lab Results 01/30/25 Range/Units 17:35 POC Influenza A Ag Negative (Negative) POC Influenza B Ag Negative (Negative) POC SARS CoV-2 Ag Negative (Negative) Discharge Plan Discharge Clinical Impression: Acute bronchitis Qualifiers: Bronchitis organism: unspecified organism Qualified Code(s): J20.9 - Acute bronchitis, unspecified Patient Disposition: Home Condition: Stable Instructions: Antibiotic Form, Acute Bronchitis (ED) Additional Instructions: take medications as prescribed. Continue taking [id number] Mucinex as directed on packaging. Drink at least 64 oz water a day. See your doctor if symptoms are not improving. Patient Language: Ukrainian Prescriptions: New doxycycline hyclate 100 mg capsule 100 mg PO BID 7 Days Qty: 14 0RF benzonatate 200 mg capsule 200 mg PO TID PRN (Reason: cough) Qty: 20 0RF prednisone 20 mg tablet 40 mg PO DAILY 5 Days Qty: 10 0RF No Action norethindrone-e.estradiol-iron [Junel FE 07/02 (28)] 1 mg-20 mcg (21)/75 mg (7) tablet 1 tablet PO DAILY hydroxychloroquine [Plaquenil] 200 mg tablet 400 mg PO DAILY Qty: 60 4RF folic acid 1 mg tablet 1 mg PO DAILY methotrexate sodium 2.5 mg tablet 12.5 mg PO WEEKLY hydrocodone-acetaminophen 5-325 mg tablet 1 tablet PO Q4H PRN (Reason: pain) Qty: 20 0RF Follow-up/Referrals: Sarika Oneal APRN [Primary Care Provider, Internal Medicine] Time of Disposition: 18:07
[2025-01-30 18:07] LABS: EDCOVIDSCREEN Negative (Negative); EDINFLUASCREEN Negative (Negative); EDINFLUBSCREEN Negative (Negative)
== END 2025-01-30 18:15 | disposition home or self-care (01) ==
PROVIDERS: Emergency Provider Nurse Practitioner Family; PCP Nurse Practitioner Family
DX: J20.9 Acute bronchitis, unspecified (principal); Z20.822 Contact with and (suspected) exposure to COVID-19; F17.210 Nicotine dependence, cigarettes, uncomplicated
CPT/HCPCS: 87426; 87804; 99213; G0463

== ENCOUNTER 2025-04-02 07:57 | Outpatient (CLI) | payer OTHER, SELFPAY ==
[2025-04-02 08:21] LABS: Hematocrit 45.2 % (37.0-47.0); Hemoglobin 15.0 g/dL (12.0-15.0); Immature Granulocyte Percent A 0.5 % (0-0.5); Lymphocytes Absolute Auto 2.86 K/mm3 (0.9-3.2); Mean Corpuscular HGB Conc 33.2 g/dl (32-36); Mean Corpuscular Hemoglobin 30.2 pg (26-34); Mean Corpuscular Volume 91.1 fl (80-100); Nucleated Red Blood Cells Absolute Auto 0.000 K/mm3 (0.0-0.012); Nucleated Red Blood Cells Perc 0.0 % (0.0-0.2); Platelet Count Result 352 k/mm3 (150-375); Red Blood Count 4.96 M/mm3 (4.2-5.4); White Blood Count 11.4 K/mm3 (4.5-10.0)
[2025-04-02 08:27] LABS: Add Urine Microscopic? YES; Appearance Urine Clear (Clear); Glucose Urine UA Negative (Negative); Leukocyte Esterase Ur Negative LEU/UL (Negative); Nitrate Urine Negative (Negative); Non Pathogenic Casts 0-2; Specific Grav Ur 1.020 (1.001-1.035)
[2025-04-02 08:44] LABS: Alanine Aminotransferase 41 U/L (6-35); Albumin Level 4.4 g/dL (3.5-5.1); Alkaline Phosphatase 87 U/L (38-126); Anion Gap 8 mmol/L (4-12); Aspartate Amino Transferase 36 U/L (14-36); Bilirubin,Total 0.3 mg/dL (0.2-1.3); Blood Urea Nitrogen 10 mg/dL (7-17); CRP 1.0 mg/dL (<1.0); Calcium 9.3 mg/dL (8.4-10.2); Carbon Dioxide 23 mmol/L (22-30); Chloride 106 mmol/L (98-107); Estimated Glomerular Filt Rate > 60; Glucose 96 mg/dL (65-110); Potassium 4.2 mmol/L (3.4-5.0); Sodium 137 mmol/L (137-145); Total Protein 7.9 g/dL (6.3-8.2)
== END 2025-04-02 07:58 | disposition home or self-care (01) ==
LOC: ANHLAB 07:59
PROVIDERS: PCP Nurse Practitioner Family; Visit Provider Internal Medicine
DX: M32.9 Systemic lupus erythematosus, unspecified (principal)
CPT/HCPCS: 36415; 80053; 81001; 84100; 85025; 85652; 86140

== ENCOUNTER 2025-04-15 11:55 | Emergency (ER) | payer OTHER, SELFPAY ==
--- NOTE | ~2025-04-15 | CT_ITS ---
EXAM: CT abdomen and pelvis with IV contrast INDICATION: Right lower quadrant pain. Nausea, vomiting, diarrhea, and chills. COMPARISONS: None. PROCEDURE: 100 mL of Isovue 300 was injected IV. Enteric contrast given. Dose reduction technique(s) used. FINDINGS: Lower chest: Lung bases are clear. There are calcified nodes in the subcarinal region. Body wall: No abnormality demonstrated. ABDOMEN: Liver: Mildly enlarged with mild fatty infiltrate. Gallbladder: Absent surgically Spleen: Normal. Adrenals: Normal. Pancreas: No mass or adjacent stranding. Normal caliber duct. Kidneys: No calculus or hydronephrosis. There are 2 tiny low densities in the right kidney. One may represent a small cyst, but it is too small to characterize. The other is fat density and very likely a tiny angiomyolipoma. Aorta: Normal caliber. IVC: Normal. Retroperitoneum: No adenopathy. Stomach and visualized esophagus: No abnormality. PELVIS: Reproductive Organs: No pelvic mass. The uterus is not seen. Bladder: No nodule or calculus. There is a urachal remnant. Colon: Diffusely collapsed with probable wall edema. There are some scattered diverticula. The appendix is seen and appears normal. Small Bowel: There is thickening of the wall of multiple proximal small bowel loops. Appendix: Normal. Mesentery: No adenopathy. Normal splanchnic veins. Peritoneum: No free fluid or free air. Bones: No destructive lesion. IMPRESSION: Findings suggestive of enteritis and colitis. Reviewed, dictated and finalized at location A. [facility]
[2025-04-15 12:09] VITALS: BP 137/89; PULSE 122; RESP 18; TEMP 36.4; O2SAT 100
[2025-04-15 13:25] LABS: Hematocrit 46.8 % (37.0-47.0); Hemoglobin 15.6 g/dL (12.0-15.0); Immature Granulocyte Percent A 0.5 % (0-0.5); Lymphocytes Absolute Auto 1.84 K/mm3 (0.9-3.2); Mean Corpuscular HGB Conc 33.3 g/dl (32-36); Mean Corpuscular Hemoglobin 30.5 pg (26-34); Mean Corpuscular Volume 91.4 fl (80-100); Nucleated Red Blood Cells Absolute Auto 0.000 K/mm3 (0.0-0.012); Nucleated Red Blood Cells Perc 0.0 % (0.0-0.2); Platelet Count Result 396 k/mm3 (150-375); Red Blood Count 5.12 M/mm3 (4.2-5.4); White Blood Count 22.8 K/mm3 (4.5-10.0)
[2025-04-15 13:39] LABS: Alanine Aminotransferase 40 U/L (6-35); Albumin Level 4.9 g/dL (3.5-5.1); Alkaline Phosphatase 82 U/L (38-126); Anion Gap 9 mmol/L (4-12); Aspartate Amino Transferase 33 U/L (14-36); Bilirubin,Total 0.4 mg/dL (0.2-1.3); Blood Urea Nitrogen 15 mg/dL (7-17); Calcium 9.5 mg/dL (8.4-10.2); Carbon Dioxide 22 mmol/L (22-30); Chloride 105 mmol/L (98-107); Estimated CRCL calculation 103 ml/min; Estimated Glomerular Filt Rate > 60; Glucose 96 mg/dL (65-110); Lipase 93 U/L (23-300); Potassium 4.2 mmol/L (3.4-5.0); Sodium 136 mmol/L (137-145); Total Protein 8.4 g/dL (6.3-8.2)
[2025-04-15] MEDS: ONDANSETRON INJ 4 MG/2 ML VIAL IV PUSH (14:03)
[2025-04-15] MEDS: LACTATED RINGERS 1,000 ML 999 ML IV CONT (14:03)
[2025-04-15 14:51] LABS: Add Urine Microscopic? YES; Appearance Urine Clear (Clear); Glucose Urine UA Negative (Negative); Leukocyte Esterase Ur Negative LEU/UL (Negative); Nitrate Urine Negative (Negative); Specific Grav Ur 1.029 (1.001-1.035)
--- NOTE | 2025-04-15 15:55 | ED.ABDPAIN ---
HPI - Abdominal Pain General Chief Complaint: Abdominal Pain Stated Complaint: RLQ pain, N/V/D Time Seen by Provider: 04/15/25 13:04 History of Present Illness HPI narrative: Around 2 this morning, patient started having nausea vomiting and diarrhea, having trouble keeping anything down, and started having some pain to her right lower quadrant. No history of appendicitis Related Data Home Medications ?Medication ?Instructions ?Recorded ?Confirmed ?Last Taken ?Type norethindrone 1 mg-ethinyl 1 tablet PO DAILY 04/08/23 06/29/24 06/28/24 History estradiol 20 mcg (21)-iron 75 mg (7) tablet (07/02 (28)) folic acid 1 mg tablet 1 mg PO DAILY 06/19/24 06/29/24 06/26/24 History methotrexate sodium 2.5 mg tablet 12.5 mg PO WEEKLY 06/19/24 06/29/24 06/26/24 History Allergies Allergy/AdvReac Type Severity Reaction Status Date / Time Penicillins Allergy Mild Rash Verified 04/15/25 12:12 tramadol Allergy Mild Nausea and Verified 04/15/25 12:12 Vomiting latex Allergy Unknown RASH Verified 04/15/25 12:12 Review of Systems Review of Systems: All systems reviewed & are unremarkable except as noted in HPI and below PMFSH Past Medical History Medical History Counseling on health promotion and disease prevention Current smoker Encounter for screening for other viral diseases Encounter for medication management Undifferentiated connective tissue disease Lumbar strain Bronchitis Surgical History Surgical History History of dilatation and curettage History of arthroscopy of left shoulder H/O arthroscopy of right knee History of placement of ear tubes History of tonsillectomy and adenoidectomy History of laparoscopic cholecystectomy Family History Family History Mother Hypertension Grandparent Diabetes mellitus Family history of coronary artery disease Other Arthritis Social History Social History Smoking packs per day: 0.5 Smoking cigarettes per day: 10.0 Years smoked: 20 Smoking pack-years: 10.00 Smoking status: Current every day smoker Tobacco type: cigarettes Second hand tobacco smoke exposure: Yes Alcohol intake: current Alcohol use details: rarely Substance use: never Substance use type: does not use Lack of Transportation: No Lack of Food: Never True Current Housing: I Have Housing Concerned About Future Housing: No Difficulty Paying Gas/Electric Bills: No Difficulty Paying for Meds: No Currently Unemployed: No Education: Associate Degree Difficulty w/ Childcare or Family Care: No Living arrangements: with family Additional living arrangements comments: with fiance and son Occupation/Education: unemployed Spiritual care concerns: No Exam Narrative: EXAMINATION OF ORGAN SYSTEMS/BODY AREAS: Constitutional: Vital signs per nursing GENERAL: Appears uncomfortable, clutching emesis bag HEAD: Normal with no signs of head trauma. EYES: EOMI, conjunctiva normal ENT: Hearing grossly intact LUNGS: Nonlabored breathing. HEART: [Regular rate and rhythm] ABD: [Soft], some slight tenderness to the right lower quadrant, no guarding EXT: Normal range of motion SKIN: [No rashes or lesions.] NEURO: [Alert and oriented x 3. No gross focal sensory or strength deficits.] PSYCH: Normal affect Course Vital Signs Vital signs: Vital Signs Temperature 97.6 F 04/15/25 12:09 Pulse Rate 122 H 04/15/25 12:09 Respiratory Rate 18 04/15/25 12:09 Blood Pressure 137/89 04/15/25 12:09 Pulse Oximetry 100 04/15/25 12:09 Oxygen Delivery Room Air 04/15/25 12:09 Temperature 97.6 F 04/15/25 12:09 Pulse Rate 122 H 04/15/25 12:09 Respiratory Rate 18 04/15/25 12:09 Blood Pressure 137/89 04/15/25 12:09 Pulse Oximetry 100 04/15/25 12:09 Oxygen Delivery Room Air 04/15/25 12:09 MDM - Abdominal Pain MDM Narrative Medical decision making narrative: Electronic medical record was reviewed. Patient presented to the ED with complaint of nausea, vomiting, diarrhea, with some right lower quadrant pain. Vitals showing tachycardia. Physical exam revealed soft abdomen with some slight tenderness palpation the right lower quadrant, patient appears uncomfortable and holding emesis bag.. Based on the patient's history and physical exam, my differential includes but is not limited to [gastritis, gastroenteritis, cholecystitis, appendicitis]. [IV access was established by nursing staff. Patient was given zofran, IV fluids]. CBC, BMP, lipase, LFTs, bilirubin and alk phos were obtained. Labs were pertinent for elevated white count. [Decision was made to obtain a CT-abdomen to evaluate for acute abdominal process. CT-abdomen per radiology interpretation thankfully without signs of appendicitis, does show colitis and enteritis.] On reevaluation, the patient states that they are feeling much better. Repeat heart rate is now 96. There were no witnessed episodes of vomiting in the emergency department. They are not complaining of any new abdominal pain. Repeat examination did not show any significant guarding or rebound. No new tenderness. At this time I do not feel there is any further emergent treatment to be provided. Which should decision making with the patient, since she does have history of lupus, she would prefer not to be admitted if possible and I feel this is quite reasonable. Will also prefer to avoid antibiotic especially since symptoms have been less than 24 hours. The patient was given strict return precautions, if they are to develop any worsening abdominal pain, vomiting, or blood in the vomit they are to return to the emergency department immediately. Patient verbally acknowledges understanding these directions. [The patient was informed of the above diagnostic test findings.] They will be discharged home [with prescriptions]. They were advised to follow-up with [their PCP] in 2 days. The patient feels that this is appropriate medical decision making and verbalizes an understanding of the discharge instructions. Lab Data 04/15/25 13:18 04/15/25 13:18 Labs: Lab Results 04/15/25 04/15/25 Range/Units 13:18 14:39 WBC 22.8 H (4.5-10.0) K/mm3 RBC 5.12 (4.2-5.4) M/mm3 Hgb 15.6 H (12.0-15.0) g/dL Hct 46.8 (37.0-47.0) % MCV 91.4 (80-100) fl MCH 30.5 (26-34) pg MCHC 33.3 (32-36) g/dl RDW 13.2 (11.5-14.5) % Plt Count 396 H (150-375) k/mm3 MPV 8.6 (7.4-10.4) fl Immature Gran % (Auto) 0.5 (0-0.5) % Neut % (Auto) 84.7 H (45.5-73.1) % Lymph % (Auto) 8.1 L (18.3-44.2) % [place] % (Auto) 5.3 (2.6-8.5) % Eos % (Auto) 1.1 (0-4.4) % Baso % (Auto) 0.3 (0.2-1.2) % Lymph # (Auto) 1.84 (0.9-3.2) K/mm3 [place] # (Auto) 1.2 H (0.1-0.6) K/mm3 Eos # (Auto) 0.3 (0-0.3) K/mm3 Baso # (Auto) 0.1 (0.0-0.1) K/mm3 Abs Immat Gran (auto) 0.11 H (0.00-0.031) K/mm3 Absolute Neuts (auto) 19.4 H (1.3-6.7) K/mm3 Absolute Nucleated RBC 0.000 (0.0-0.012) K/mm3 Nucleated RBC % 0.0 (0.0-0.2) % Sodium 136 L (137-145) mmol/L Potassium 4.2 (3.4-5.0) mmol/L Chloride 105 (98-107) mmol/L Carbon Dioxide 22 (22-30) mmol/L Anion Gap 9 (4-12) mmol/L BUN 15 D (7-17) mg/dL Creatinine 0.79 (0.7-1.0) mg/dL Estim Creat Clear Calc 103 ml/min Estimated GFR > 60 (59 - ) Glucose 96 (65-110) mg/dL Calcium 9.5 (8.4-10.2) mg/dL Total Bilirubin 0.4 (0.2-1.3) mg/dL AST 33 (14-36) U/L ALT 40 H (6-35) U/L Alkaline Phosphatase 82 (38-126) U/L Total Protein 8.4 H (6.3-8.2) g/dL Albumin 4.9 (3.5-5.1) g/dL Lipase 93 (23-300) U/L Urine Color Yellow (Yellow) Urine Appearance Clear (Clear) Urine pH 5.5 (5.0-9.0) Ur Specific [place] 1.029 (1.001-1.035) Urine Protein 2+ H (Negative) mg/dL Urine Glucose (UA) Negative (Negative) mg/dL Urine Ketones Trace H (Negative) mg/dL Ur Blood (Man) 2+ H (Negative) Urine Nitrate Negative (Negative) Urine Bilirubin Negative (Negative) Urine Urobilinogen 1.0 (<2.0) mg/dL Leukocyte Esterase Rfl Negative (Negative) JEANETTE/UL Urine RBC 21-50 H (0-2) /hpf Urine WBC 0-5 (0-3) /hpf Ur Squamous Epith Cells Occasional (Few) /hpf Urine Bacteria None seen /hpf Urine Casts 3-5 Imaging Data Radiologist's impression: ITS Impressions Abdomen/Pelvis CT 04/15/25 15:02 IMPRESSION: Findings suggestive of enteritis and colitis. Discharge Plan Discharge Clinical Impression: Enterocolitis, Nausea, vomiting, and diarrhea Patient Disposition: Home Condition: Stable Instructions: Colitis (ED) Additional Instructions: Please follow up with your doctor; you can always return for any further issues. Try the medication as prescribed and make sure to keep hydrated. Patient Language: Irish Prescriptions: New ondansetron 4 mg tablet,disintegrating 4 mg PO Q8H PRN (Reason: nausea and vomiting) Qty: 10 0RF No Action norethindrone-e.estradiol-iron [Junel FE 07/02 (28)] 1 mg-20 mcg (21)/75 mg (7) tablet 1 tablet PO DAILY doxycycline hyclate 100 mg capsule 100 mg PO BID 7 Days Qty: 14 0RF benzonatate 200 mg capsule 200 mg PO TID PRN (Reason: cough) Qty: 20 0RF prednisone 20 mg tablet 40 mg PO DAILY 5 Days Qty: 10 0RF hydroxychloroquine [Plaquenil] 200 mg tablet 400 mg PO DAILY Qty: 60 4RF folic acid 1 mg tablet 1 mg PO DAILY methotrexate sodium 2.5 mg tablet 12.5 mg PO WEEKLY hydrocodone-acetaminophen 5-325 mg tablet 1 tablet PO Q4H PRN (Reason: pain) Qty: 20 0RF Follow-up/Referrals: Sarika Oneal APRN [Primary Care Provider, Internal Medicine] - 2 Days
[2025-04-15 16:19] VITALS: BP 129/72; PULSE 100; RESP 16; TEMP 36.4; O2SAT 100
== END 2025-04-15 16:20 | disposition home or self-care (01) ==
PROVIDERS: Emergency Provider Emergency Medicine; PCP Nurse Practitioner Family
DX: K52.9 Noninfective gastroenteritis and colitis, unspecified (principal); R11.2 Nausea with vomiting, unspecified; F17.210 Nicotine dependence, cigarettes, uncomplicated
CPT/HCPCS: 36415; 74177; 80053; 81001; 83690; 85025; 96361; 96374; 99284; J2405; J7120; Q9967

== ENCOUNTER 2025-05-03 09:07 | Outpatient (CLI) | payer OTHER, SELFPAY ==
[2025-05-03 10:12] LABS: Add Urine Microscopic? YES; Appearance Urine Clear (Clear); Glucose Urine UA Negative (Negative); Leukocyte Esterase Ur Negative LEU/UL (Negative); Nitrate Urine Negative (Negative); Non Pathogenic Casts 0-2; Specific Grav Ur 1.029 (1.001-1.035)
== END 2025-05-03 09:08 | disposition home or self-care (01) ==
LOC: ANHLAB 09:08
PROVIDERS: PCP Nurse Practitioner Family; Visit Provider Nurse Practitioner Family
DX: R80.9 Proteinuria, unspecified (principal); R31.9 Hematuria, unspecified
CPT/HCPCS: 81001; 87086

== ENCOUNTER 2025-05-22 08:43 | Outpatient (CLI) | payer OTHER, SELFPAY ==
[2025-05-22 09:12] LABS: Hematocrit 43.0 % (37.0-47.0); Hemoglobin 14.7 g/dL (12.0-15.0); Immature Granulocyte Percent A 0.3 % (0-0.5); Lymphocytes Absolute Auto 2.68 K/mm3 (0.9-3.2); Mean Corpuscular HGB Conc 34.2 g/dl (32-36); Mean Corpuscular Hemoglobin 31.3 pg (26-34); Mean Corpuscular Volume 91.7 fl (80-100); Nucleated Red Blood Cells Absolute Auto 0.000 K/mm3 (0.0-0.012); Nucleated Red Blood Cells Perc 0.0 % (0.0-0.2); Platelet Count Result 341 k/mm3 (150-375); Red Blood Count 4.69 M/mm3 (4.2-5.4); White Blood Count 10.0 K/mm3 (4.5-10.0)
[2025-05-22 09:17] LABS: Add Urine Microscopic? YES; Appearance Urine Turbid (Clear); Glucose Urine UA Negative (Negative); Leukocyte Esterase Ur Negative LEU/UL (Negative); Nitrate Urine Negative (Negative); Non Pathogenic Casts 0-2; Specific Grav Ur 1.026 (1.001-1.035)
[2025-05-22 09:37] LABS: Alanine Aminotransferase 42 U/L (6-35); Albumin Level 4.6 g/dL (3.5-5.1); Alkaline Phosphatase 66 U/L (38-126); Anion Gap 6 mmol/L (4-12); Aspartate Amino Transferase 41 U/L (14-36); Bilirubin,Total 0.5 mg/dL (0.2-1.3); Blood Urea Nitrogen 14 mg/dL (7-17); CRP < 0.5 mg/dL (<1.0); Calcium 9.7 mg/dL (8.4-10.2); Carbon Dioxide 25 mmol/L (22-30); Chloride 103 mmol/L (98-107); Estimated Glomerular Filt Rate > 60; Glucose 87 mg/dL (65-110); Potassium 4.3 mmol/L (3.4-5.0); Sodium 134 mmol/L (137-145); Total Protein 7.9 g/dL (6.3-8.2)
== END 2025-05-22 08:44 | disposition home or self-care (01) ==
PROVIDERS: PCP Nurse Practitioner Family; Visit Provider Internal Medicine
DX: M32.9 Systemic lupus erythematosus, unspecified (principal)
CPT/HCPCS: 36415; 80053; 81001; 84100; 85025; 85652; 86140